=== PATIENT | female | born 1950 | race Caucasian/White ===

== ENCOUNTER 2023-02-13 10:55 | Outpatient (RCR) | payer MEDICARE, OTHER, SELFPAY | END 2023-02-13 23:59 | disposition home or self-care (01) | LOC: RPT 10:55 | PROVIDERS: ATTENDING PHYSICIAN Orthopaedic Surgery; PRIMARYCARE PHYSICIAN Nurse Practitioner Primary Care | DX: M25.562 Pain in left knee (principal); M25.561 Pain in right knee; Z73.6 Limitation of activities due to disability | CPT/HCPCS: 97110; 97112; 97162 ==

== ENCOUNTER 2023-03-09 07:10 | Outpatient (RCR) | payer MEDICARE, OTHER, SELFPAY | END 2023-03-09 08:42 | disposition home or self-care (01) | LOC: RPT 07:10 | PROVIDERS: ATTENDING PHYSICIAN Orthopaedic Surgery; PRIMARYCARE PHYSICIAN Nurse Practitioner Primary Care | DX: M25.562 Pain in left knee (principal); M25.561 Pain in right knee; Z73.6 Limitation of activities due to disability; M62.81 Muscle weakness (generalized) | CPT/HCPCS: 97110; 97112 ==

== ENCOUNTER → 2023-03-18 11:09 | Outpatient (REF) | payer MEDICARE, OTHER, SELFPAY ==
[2023-03-18 11:51] LABS: % Basophils 0.3 % (0-2); % Eosinophils 0.5 % (0-6); % Immature Granulocytes 0.5 % (0-0.5); % Lymphocytes 20.3 % (20.5-51.1); % Monocytes 7.5 % (1.7-9.3); % Neutrophils 70.9 % (42.2-75.2); Absolute Lymphocytes 1.3 10^3/uL (1.2-3.4); Absolute Monocytes 0.5 10^3/uL (0.1-0.6); Absolute Neutrophils 4.6 10^3/uL (1.4-6.5); Hematocrit 43.3 % (37.0-47.0); Hemoglobin 14.2 g/dL (12.0-16.0); Mean Corp Hgb Conc. 32.8 g/dL (33.0-37.0); Mean Corpuscular Hgb 27.7 pg (27.0-31.0); Mean Corpuscular Volume 84.4 fL (81.0-99.0); Mean Platelet Volume 9.2 fL (7.4-10.4); Nucleated Red Blood Cells % 0 %; Platelet Count 285 10^3/uL (130-400); Red Blood Cell Count 5.13 10^6/uL (4.20-5.40); Red Cell Dist. Width 14.1 % (11.5-14.5); White Blood Cell Count 6.5 10^3/uL (4.8-10.8)
[2023-03-18 12:29] LABS: Erythrocyte Sed Rate 31 mm/hour (0-20)
[2023-03-18 13:17] LABS: ALT (SGPT) 24 U/L (0-35); AST (SGOT) 31 U/L (14-36); Albumin 4.3 g/dl (3.5-5.0); Alkaline Phosphatase 126 U/L (38-126); Blood Urea Nitrogen 16 mg/dl (7-17); Calcium 9.6 mg/dl (8.4-10.2); Carbon Dioxide 27 mmol/L (22-30); Chloride 100 mmol/L (98-107); Glucose 82 mg/dl (70-99); Potassium 4.6 mmol/L (3.5-5.1); Sodium 133 mmol/L (135-145); Total Bilirubin 0.6 mg/dl (0.2-1.3); Total Protein 7.5 g/dl (6.3-8.2); eGFR > 60.00
[2023-03-19 00:13] LABS: IgA 230 mg/dl (70-400)
[2023-03-20 00:20] LABS: tTG IgA Antibody <1.02 FLU (0.00-4.99)
[2023-03-20 23:26] LABS: Endomysial IgA Antibody Titer <1:10 (<1:10)
== END ==
LOC: REG 11:09
PROVIDERS: ATTENDING PHYSICIAN Nurse Practitioner Primary Care
DX: R19.7 Diarrhea, unspecified (principal); R10.9 Unspecified abdominal pain; R70.0 Elevated erythrocyte sedimentation rate
CPT/HCPCS: 36415; 80053; 82784; 83516; 85025; 85652; 86140; 86231

== ENCOUNTER → 2023-03-23 08:31 | Outpatient (REF) | payer MEDICARE, OTHER, SELFPAY ==
[2023-03-23 09:17] LABS: % Basophils 0.2 % (0-2); % Eosinophils 0.7 % (0-6); % Immature Granulocytes 0.3 % (0-0.5); % Lymphocytes 17.6 % (20.5-51.1); % Monocytes 9.4 % (1.7-9.3); % Neutrophils 71.8 % (42.2-75.2); Absolute Lymphocytes 1.1 10^3/uL (1.2-3.4); Absolute Monocytes 0.6 10^3/uL (0.1-0.6); Absolute Neutrophils 4.3 10^3/uL (1.4-6.5); Hematocrit 40.6 % (37.0-47.0); Hemoglobin 13.9 g/dL (12.0-16.0); Mean Corp Hgb Conc. 34.2 g/dL (33.0-37.0); Mean Corpuscular Hgb 28.1 pg (27.0-31.0); Mean Platelet Volume 9.6 fL (7.4-10.4); Nucleated Red Blood Cells % 0 %; Platelet Count 298 10^3/uL (130-400); Red Blood Cell Count 4.95 10^6/uL (4.20-5.40); Red Cell Dist. Width 14.4 % (11.5-14.5)
[2023-03-23 09:45] LABS: ALT (SGPT) 26 U/L (0-35); AST (SGOT) 25 U/L (14-36); Albumin 3.7 g/dl (3.5-5.0); Alkaline Phosphatase 107 U/L (38-126); Blood Urea Nitrogen 18 mg/dl (7-17); Calcium 9.6 mg/dl (8.4-10.2); Carbon Dioxide 22 mmol/L (22-30); Glucose 98 mg/dl (70-99); Total Bilirubin 0.6 mg/dl (0.2-1.3); Total Protein 6.8 g/dl (6.3-8.2); eGFR > 60.00
[2023-03-23 09:50] LABS: Chloride 101 mmol/L (98-107); Potassium 4.6 mmol/L (3.5-5.1); Sodium 132 mmol/L (135-145)
[2023-03-23 10:20] LABS: IgA 205 mg/dl (70-400)
[2023-03-24 16:43] LABS: tTG IgA Antibody 6.2 EU/ml (0-19); tTG IgG Antibody 5.3 EU/ml (0-19)
[2023-03-25 22:06] LABS: Endomysial IgA Antibody Titer <1:10 (<1:10)
== END ==
LOC: REG 08:31
PROVIDERS: ATTENDING PHYSICIAN Nurse Practitioner Primary Care
DX: R19.7 Diarrhea, unspecified (principal); R10.9 Unspecified abdominal pain
CPT/HCPCS: 36415; 80053; 82784; 83516; 85025; 86231; 87045; 87046; 87077; 87324; 87328; 87329; 87427; 87449; 89055

== ENCOUNTER → 2023-03-28 08:04 | Outpatient (REF) | payer MEDICARE, OTHER, SELFPAY ==
[2023-03-28 08:47] LABS: % Basophils 0.2 % (0-2); % Immature Granulocytes 0.2 % (0-0.5); % Lymphocytes 28.8 % (20.5-51.1); % Monocytes 9.7 % (1.7-9.3); % Neutrophils 60.1 % (42.2-75.2); Absolute Eosinophils 0.1 10^3/uL (0-0.7); Absolute Lymphocytes 1.5 10^3/uL (1.2-3.4); Absolute Monocytes 0.5 10^3/uL (0.1-0.6); Absolute Neutrophils 3.2 10^3/uL (1.4-6.5); Hematocrit 43.4 % (37.0-47.0); Hemoglobin 14.3 g/dL (12.0-16.0); Mean Corp Hgb Conc. 32.9 g/dL (33.0-37.0); Mean Corpuscular Hgb 27.8 pg (27.0-31.0); Mean Corpuscular Volume 84.3 fL (81.0-99.0); Mean Platelet Volume 9.7 fL (7.4-10.4); Nucleated Red Blood Cells % 0 %; Platelet Count 335 10^3/uL (130-400); Red Blood Cell Count 5.15 10^6/uL (4.20-5.40); Red Cell Dist. Width 14.6 % (11.5-14.5); White Blood Cell Count 5.2 10^3/uL (4.8-10.8)
[2023-03-28 09:09] LABS: ALT (SGPT) 26 U/L (0-35); AST (SGOT) 30 U/L (14-36); Albumin 4.2 g/dl (3.5-5.0); Alkaline Phosphatase 124 U/L (38-126); Blood Urea Nitrogen 15 mg/dl (7-17); Calcium 9.5 mg/dl (8.4-10.2); Carbon Dioxide 27 mmol/L (22-30); Chloride 101 mmol/L (98-107); Glucose 106 mg/dl (70-99); Potassium 4.6 mmol/L (3.5-5.1); Sodium 134 mmol/L (135-145); Total Bilirubin 0.6 mg/dl (0.2-1.3); Total Protein 7.2 g/dl (6.3-8.2); eGFR > 60.00
[2023-03-28 09:10] LABS: Erythrocyte Sed Rate 20 mm/hour (0-20)
== END ==
LOC: REG 08:04
PROVIDERS: ATTENDING PHYSICIAN Nurse Practitioner Primary Care
DX: R19.7 Diarrhea, unspecified (principal)
CPT/HCPCS: 36415; 80053; 85025; 85652; 86140

== ENCOUNTER → 2023-04-02 10:06 | Outpatient (REF) | payer MEDICARE, OTHER, SELFPAY | LOC: RAD 10:06 | PROVIDERS: ATTENDING PHYSICIAN Nurse Practitioner Primary Care | DX: R10.30 Lower abdominal pain, unspecified (principal); K62.89 Other specified diseases of anus and rectum; R19.7 Diarrhea, unspecified; C50.512 Malignant neoplasm of lower-outer quadrant of left female breast; R70.0 Elevated erythrocyte sedimentation rate | CPT/HCPCS: 74177; Q9967 ==

== ENCOUNTER → 2023-04-04 11:18 | Outpatient (REF) | payer MEDICARE, OTHER, SELFPAY | LOC: REG 11:18 | PROVIDERS: ATTENDING PHYSICIAN Nurse Practitioner Primary Care | DX: R19.7 Diarrhea, unspecified (principal) | CPT/HCPCS: 87324; 87449 ==

== ENCOUNTER → 2023-04-20 08:32 | Outpatient (REF) | payer MEDICARE, OTHER, SELFPAY ==
[2023-04-20 09:14] LABS: Urine Albumin Negative (Neg - Trace); Urine Bilirubin Negative (Negative); Urine Character Clear (Clear); Urine Color Yellow; Urine Glucose Negative (Negative); Urine Ketone Negative (Negative); Urine Leukocyte Negative (Negative); Urine Nitrite Negative (Negative); Urine Occult Blood Negative (Negative); Urine Specific Gravity 1.015 (<1.030); Urine Urobilinogen Negative (Neg - 1+); Urine pH 6.5 (5.0-9.0)
[2023-04-20 09:47] LABS: Osmolality Serum 283 mOsm/kg (275-300)
[2023-04-20 09:53] LABS: Blood Urea Nitrogen 20 mg/dl (7-17); Carbon Dioxide 22 mmol/L (22-30); Chloride 101 mmol/L (98-107); Glucose 68 mg/dl (70-99); Osmolality Urine 389 mOsm/kg (300-900); Potassium 4.8 mmol/L (3.5-5.1); Sodium 133 mmol/L (135-145); eGFR > 60.00
[2023-04-20 10:11] LABS: Urine Sodium 48 mmol/L (30-90)
== END ==
LOC: REG 08:32
PROVIDERS: ATTENDING PHYSICIAN Nurse Practitioner Primary Care
DX: E87.1 Hypo-osmolality and hyponatremia (principal)
CPT/HCPCS: 36415; 80048; 81003; 83930; 83935; 84300

== ENCOUNTER 2023-06-19 12:09 | Emergency (ER) | payer MEDICARE, OTHER, SELFPAY ==
[2023-06-19 12:11] VITALS: BP 163/107
[2023-06-19 13:54] LABS: % Basophils 0.2 % (0-2); % Eosinophils 0.9 % (0-6); % Immature Granulocytes 0.2 % (0-0.5); % Neutrophils 57.7 % (42.2-75.2); Absolute Lymphocytes 1.5 10^3/uL (1.2-3.4); Absolute Monocytes 0.4 10^3/uL (0.1-0.6); Absolute Neutrophils 2.7 10^3/uL (1.4-6.5); Hematocrit 40.5 % (37.0-47.0); Hemoglobin 13.6 g/dL (12.0-16.0); Mean Corp Hgb Conc. 33.6 g/dL (33.0-37.0); Mean Corpuscular Hgb 28.5 pg (27.0-31.0); Mean Corpuscular Volume 84.7 fL (81.0-99.0); Mean Platelet Volume 9.3 fL (7.4-10.4); Nucleated Red Blood Cells % 0 %; Platelet Count 251 10^3/uL (130-400); Red Blood Cell Count 4.78 10^6/uL (4.20-5.40); Red Cell Dist. Width 14.6 % (11.5-14.5); White Blood Cell Count 4.7 10^3/uL (4.8-10.8)
[2023-06-19] MEDS: OMNIPAQUE 50 ML PO (13:59)
[2023-06-19 14:00] VITALS: BMI 32.0
[2023-06-19 14:12] LABS: ALT (SGPT) 20 U/L (0-35); AST (SGOT) 26 U/L (14-36); Albumin 4.1 g/dl (3.5-5.0); Blood Urea Nitrogen 18 mg/dl (7-17); Calcium 9.4 mg/dl (8.4-10.2); Carbon Dioxide 28 mmol/L (22-30); Chloride 99 mmol/L (98-107); Estimated Creatinine Clearance 64 ml/min; Glucose 88 mg/dl (70-99); Lipase 215 U/L (23-300); Potassium 3.9 mmol/L (3.5-5.1); Sodium 131 mmol/L (135-145); Total Bilirubin 0.4 mg/dl (0.2-1.3); eGFR > 60.00
[2023-06-19 14:13] LABS: Alkaline Phosphatase 120 U/L (38-126)
[2023-06-19 14:48] LABS: Urine Albumin Negative (Neg - Trace); Urine Bilirubin Negative (Negative); Urine Character Clear (Clear); Urine Color Yellow; Urine Glucose Negative (Negative); Urine Ketone Trace (Negative); Urine Leukocyte Trace (Negative); Urine Nitrite Negative (Negative); Urine Occult Blood Negative (Negative); Urine Specific Gravity 1.015 (<1.030); Urine Urobilinogen Negative (Neg - 1+)
[2023-06-19 15:08] LABS: Urine Amorphous Seen; Urine Squamous Cell 26-30 /LPF (Few)
[2023-06-19 15:10] LABS: Urine Red Blood Cell 0-2 /HPF (0-2)
--- NOTE | 2023-06-19 15:40 | ED.GENMED ---
History of Present Illness
General
Chief Complaint: Abdominal Symptoms
Source: patient
Exam Limitations: none
Time Seen by Provider: 06/19/23 12:45
Nursing documentation reviewed up to this point in time: agreed with
Travel History
Have you had any contact with someone who has COVID-19?: No
Do you have any symptoms of coronavirus? Fever > 100 degrees, chills, cough, shortness of breath, sore throat, loss of taste or smell, muscle aches, or headache?: No
History of Present Illness
History of Present Illness:
72-year-old female with a past medical history of breast cancer status post mastectomy who presents to the emergency department for evaluation of abdominal pain. Patient reports that she has been dealing with this for over a year. Over the past
few months it has been worse. She says that pain comes and goes. Describes crampy lower abdominal pain. She says she has associated issues with irregular bowel movements�will occasionally be quite constipated and then have bouts of diarrhea. She
says that this morning at 3 AM pain seem to be acutely worse. She says pain is diffuse and crampy. No triggering or relieving factors noted. Mild nausea no vomiting. Had some loose stools today. No bloody stools. No fevers. No urinary
symptoms. No other complaints. She has had multiple prior CT scans with no clear diagnosis. She is set to see GI in July (Dr. Barlow).
Review of Systems
Review of Systems
All Other Systems: ROS reviewed and negative except as documented in HPI and ROS
Constitutional: Denies fever or chills
Respiratory: Denies cough or trouble breathing
Cardiac: Denies chest pain or palpitations
ABD/GI: Reports abdominal pain, nausea and diarrhea; Denies vomiting or bloody stools
: Denies dysuria, frequency or flank pain
Musculoskeletal: Denies neck pain or back pain
Neurological: Denies headache, weakness or numbness
Phy Exam
Physical Exam
Physical Exam:
General: Awake, alert, oriented x3; no acute distress
Head: Normocephalic, atraumatic
Eyes: Conjunctiva normal, sclera anicteric
Throat: Airway intact, handling secretions
Neck: Trachea midline, supple without meningismus
Lungs: Clear to auscultation bilaterally, no wheezing, rales, rhonchi
Heart: Regular rate and rhythm, no murmurs, gallops, or rubs
Abd: Normal active bowel sounds, soft, non distended, mild diffuse tenderness
Neuro: No gross deficits
Skin: no rash
Extremities: No edema in extremities, equal pulses in all extremities
Scores
Heart Failure Risk
Heart Failure Risk Score: Not Applicable
Heart Score for Chest Pain Patients
STEMI patient?: Not applicable
Withdrawal Assessment of Alcohol
Withdrawal Assessment Completed?: Not applicable
Course
Orders/Labs/Results
Orders:
Orders
06/19/23 13:29
CT Abd/pel W Iv And Oral Contr Urgent
Comment:
Reason For Exam: diffuse abdominal pain, acute on chronic w/ nausea
Iohexol [Omnipaque] See Protocol PO NOW STA
06/19/23 13:41
Complete Blood Count/With Diff Urgent
Comprehensive Metabolic Panel Urgent
Lipase Urgent
Urinalysis Reflex To Culture Urgent
Date Specimen was Collected: 06/19/23
Time Specimen was Collected: 13:38
Urine Microscopic Reflex Cult Urgent
06/19/23 16:03
Morphine Sulfate 4 mg IV NOW STA
Abnormal Lab Results
06/19/23
13:41
WBC 4.7 L 10^3/uL
(4.8-10.8)
RDW 14.6 H %
(11.5-14.5)
Sodium 131 L mmol/L
(135-145)
BUN 18 H mg/dl
(7-17)
Urine Ketones Trace A
(Negative)
Leukocyte Esterase Rfl Trace A
(Negative)
06/19/23 13:41
06/19/23 13:41
Vital Signs
Initial and Last Documented VS:
Initial Vital Signs
Temp Pulse Resp BP Pulse Ox
36.4 C 77 18 163/107 100
06/19/23 12:11 06/19/23 12:11 06/19/23 12:11 06/19/23 12:11 06/19/23 12:11
Last Documented Vital Signs
Temp Pulse Resp BP Pulse Ox
36.4 C 60 18 178/74 100
06/19/23 12:11 06/19/23 17:02 06/19/23 17:02 06/19/23 17:02 06/19/23 17:02
MDM/Problems Addressed
Differential Diagnosis Includes:
Cholelithiasis, cholecystitis, constipation, irritable bowel syndrome, bowel obstruction, nephrolithiasis, UTI, diverticulitis, appendicitis, malignancy
MDM/Problems Addressed:
72-year-old female presents for evaluation of acute on chronic abdominal pain. Has been dealing with this for months to years and has had associated nausea and alternating diarrhea/constipation. Set to see GI in July. Has had prior imaging with
no clear diagnosis. Symptoms seem acutely worse this morning since 3 AM. She arrived to us hypertensive but otherwise normal vitals. Physical exam as above. Plan to place an IV check labs including a CBC and a CMP. Check urinalysis. Will send
for a CT of the abdomen pelvis. Will treat pain. Monitor closely reassess after the above.
Labs reviewed: CBC unremarkable, CMP no clinically significant abnormalities. Urinalysis negative for infection. CT of the abdomen pelvis shows severe constipation�I suspect that likely her symptoms are due to chronic constipation. I had a long
discussion about dietary adjustments to help with constipation. In the short-term we will start with magnesium citrate and increase MiraLAX over the next few days, add Colace to her current regimen of MiraLAX daily. Patient feels comfortable this
plan. She has follow-up with GI scheduled already. We did speak about return precautions and all questions were answered.
Acute Exacerbation and/or Progression of Chronic Illness:
Acutely hypertensive, likely pain related�treat pain but no additional anti-hypertensives for now
Acute Exacerbation and/or Progression of Chronic Illness: HTN
*Radiology
Radiology exam reviewed: radiology read reviewed
*Pulse Oximetry
Patient hypoxic: no
*Critical Care Note
Total Time (30-74mins, 75-104mins- exclusive of procedures): Not Applicable
Data Reviewed
Review of Other/Old Records Reveals: Labs, Records and Radiology Studies
Source: patient and records
ED Attending Note
-
Portions of this chart may have been created with voice recognition software.� Occasional wrong word or��sound alike� substitutions may have occurred due to the inherent limitations of voice recognition software.
Discharge Plan
Departure
Patient Disposition: Home (Routine Discharge)
Date of Disposition: 06/19/23
Time of Disposition: 17:56
Patient with high blood pressure during this ER visit?: Yes
Discharge Problem:
Acute constipation, Hypertension
Instructions: Constipation, Adult (DC), Martin Diet, BLOOD PRESSURE
Prescriptions:
New
docusate sodium [Colace] 100 mg capsule
100 mg PO DAILY Qty: 30 0RF
Referrals:
January Felix CRNP [Family Provider] -
Ricarda Barlow MD [Active] - Keep scheduled appt
Activity Restrictions/Additional Instructions:
YOU SHOULD TAKE THE MAGNESIUM CITRATE TONIGHT. FOR THE NEXT THREE DAYS, INCREASE YOUR MIRALAX INTAKE TO TWO (2) CAPFULS DAILY. AFTER THAT, YOU CAN RETURN TO ONE (1) CAPFUL DAILY. YOU SHOULD ADD COLACE ONCE DAILY TO YOUR REGIMEN WELL. FOR THE NEXT
THREE DAYS YOU SHOULD KEEP YOUR DIET BLAND WE DISCUSSED. YOU SHOULD FOLLOW UP WITH THE GI DOCTOR SCHEDULED.
Thank you for visiting the Emergency Department at [facility].
1. Please schedule a follow up appointment as directed. Call first thing tomorrow morning to make an appointment.
2. If indicated, please take your medications as instructed and indicated on discharge paperwork.
3. If any of your symptoms do not improve, or persist, or become more severe within 6-12 hours, please return to the emergency department for further care.
4. Please return to the emergency department if you develop a headache, neck pain/stiffness, fever greater than 100.4F, chest pain, shortness of breath, persistent nausea, vomiting, slurred speech, difficulty walking, numbness/tingling, weakness,
signs of infection or any other symptoms that are worrisome to you.
Please call [phone] if you have any questions.
Interventions
Interventions:
*Risk Screen - Suicide Last Done: 06/19/23 14:00
*General Assessment Last Done: 06/19/23 14:00
*Neglect/Abuse Screening Last Done: 06/19/23 14:00
YK-Wyngrd-Thnsjvhlnq Assessment Last Done: 06/19/23 14:00
Discharge Date and Time
Print Language: WELSH
[2023-06-19 17:02] VITALS: BP 178/74
[2023-06-19] MEDS: CITROMA 300 ML PO (18:11)
== END 2023-06-19 18:39 | disposition home or self-care (01) ==
LOC: EMR 12:09
PROVIDERS: EMERGENCY PHYSICIAN Emergency Medicine; FAMILY PHYSICIAN Nurse Practitioner Primary Care
DX: K59.09 Other constipation (principal); I10 Essential (primary) hypertension
CPT/HCPCS: 99285; 74177; 80053; 81003; 81015; 83690; 85025; Q9967

== ENCOUNTER 2023-06-23 14:13 | Emergency (ER) | payer MEDICARE, OTHER, SELFPAY ==
[2023-06-23 14:24] VITALS: BP 162/89
--- NOTE | 2023-06-23 15:22 | ED.GENMED ---
History of Present Illness
General
Chief Complaint: Abdominal Pain
Source: patient
Exam Limitations: none
Time Seen by Provider: 06/23/23 15:06
Nursing documentation reviewed up to this point in time: agreed with
Travel History
Have you had any contact with someone who has COVID-19?: No
Do you have any symptoms of coronavirus? Fever > 100 degrees, chills, cough, shortness of breath, sore throat, loss of taste or smell, muscle aches, or headache?: No
History of Present Illness
History of Present Illness:
72 y/o F with h/o remote breast cancer
dealing with some chronic constipation for months
here with diarrhea, lower abd pain
was here 4 day ago for lower abd pain and CT showed large stool burden c/w constipation, no colitis
pt was d/c with instructions to use mag citrate 1 bottle that day and then inc her daily miralax to BID which she has done the apst 3 ays
now she has worsening lower abd pain and has had very voluminous loose bms x 4 yesterday ,x 2 today, no blood.
pt feels dehydrated and weak
no fever, chills, urinary symptoms, syncope, cp.
turns out this lower abd pain and rectal ';pressure' has been ongoni since april
she also had it last year
has been to PCP and ED and is due to see GI next month
no diagnosis
it is slightly worse than usual but ithis is the same pain she has felt for months
Past History
Past History
ED Past Medical History: Cancer (breast)
ED Past Surgical History: Other (mastectomy)
Review of Systems
Review of Systems
Allergies reviewed?: Yes
All Other Systems: Not applicable
Phy Exam
Physical Exam
Physical Exam:
GENERAL: Alert , in no apparent distress
EYE: pupils equal and reactive
NECK: Supple
ENT: o/p clr, mmm.
CARDIAC: Regular rate and rhythm .
LUNGS: Clear breath sounds bilaterally, no acute respiratory distress, no wheezes/rales/rhonchi
ABDOMEN: Soft, no focal abdominal tenderness, nondistended no r/g, no cvat, normal bowel sounds
rectal: no fecal impaction, stool heme neg
NEUROLOGICAL: Alert and oriented, no focal neuro deficits
SKIN: Warm and dry, skin intact.
MUSCULOSKELETAL: No edema, well perfused.
PSYCH: Normal and appropriate interaction.
Course
Orders/Labs/Results
Orders:
Orders
06/23/23 15:19
0.9% Sodium Chloride 1000 ml [Nss] 1,000 ml IV BOLUS
Dicyclomine [Bentyl] 20 mg PO NOW STA
Ketorolac [Toradol] 15 mg IV NOW STA
06/23/23 15:44
Complete Blood Count/With Diff Urgent
Comprehensive Metabolic Panel Urgent
Lactic Acid Urgent
Magnesium Urgent
Urinalysis Reflex To Culture Urgent
Date Specimen was Collected: 06/23/23
Time Specimen was Collected: 15:24
06/23/23 17:04
Obstruct Series W/PA Chest [CR Obstruct Series W/pa Chest] Urgent
Comment:
Reason For Exam: chronic abd pain, constipation
06/23/23 17:39
Mineral Oil Enema [Fleet Mineral Oil Enema] 133 ml RECTAL NOW STA
Abnormal Lab Results
06/23/23
15:44
Sodium 131 L mmol/L
(135-145)
Chloride 97 L mmol/L
(98-107)
BUN 21 H mg/dl
(7-17)
06/23/23 15:44
06/23/23 15:44
Vital Signs
Blood pressure: 167/65
Initial and Last Documented VS:
Initial Vital Signs
Temp Pulse Resp BP Pulse Ox
98.1 F 88 20 162/89 99
06/23/23 14:24 06/23/23 14:24 06/23/23 14:24 06/23/23 14:24 06/23/23 14:24
Last Documented Vital Signs
Temp Pulse Resp BP Pulse Ox
98.1 F 51 20 167/65 99
06/23/23 14:24 06/23/23 17:32 06/23/23 14:24 06/23/23 17:41 06/23/23 14:24
MDM/Problems Addressed
Differential Diagnosis Includes:
chronic constipation, ibs, colitis, diarrhea
MDM/Problems Addressed:
72-year-old female with a remote breast cancer, otherwise healthy but dealing with chronic abdominal issues presents for second time in a few days for now looser bowel movements and lower abdominal pain after being seen here few days ago and having
a CT showing constipation for which she was treated with mag citrate, MiraLAX twice daily and Colace. Patient normally just takes MiraLAX once a day. Since using all those meds she has had more crampy abdominal pain and more looser stools. She
has had larger volume, yesterday was worse with 4 episodes and today was just 2 episodes but she feels a little dehydrated. She is not having any fever or chills or vomiting. Stool is brown. She has not had any known infectious exposures. On
exam her vitals are stable, she seems anxious but she has no focal abdominal tenderness, no fecal impaction. Initially it seemed as if these symptoms all started after the meds the other day but after the patient was treated with pain medication
she feels much better and was able to tell me that she has had the same symptoms for months. She seen her family doctor and come to the ER few times and also has an appointment with GI coming up. On exam I am not concerned about an infectious
cause, she has no diverticula noted in the colon. Her labs are reassuring showed no elevated white count lfts, normal no sig electrolyte disturbances
Patient reassessed after Bentyl and Toradol and she still having some of the lower abdominal pain although it is improved. I will repeat an obstruction series to look at the bowel gas pattern but anticipate discharge with Bentyl, Metamucil and
Tylenol for pain. Follow-up with GI
*Critical Care Note
Total Time (30-74mins, 75-104mins- exclusive of procedures): Not Applicable
ED Attending Note
-
Portions of this chart may have been created with voice recognition software.� Occasional wrong word or��sound alike� substitutions may have occurred due to the inherent limitations of voice recognition software.
Discharge Plan
Departure
Patient Disposition: Home (Routine Discharge)
Date of Disposition: 06/23/23
Time of Disposition: 17:39
Patient with high blood pressure during this ER visit?: Yes
Condition: Fair
Covid-19: Not Applicable
Discharge Problem:
Abdominal pain, Constipation
Instructions: Constipation, Adult (DC), Abdominal Pain
Prescriptions:
New
dicyclomine 20 mg tablet
20 mg PO TID PRN (Reason: abdominal pain) 5 Days Qty: 15 0RF
No Action
docusate sodium [Colace] 100 mg capsule
100 mg PO DAILY Qty: 30 0RF
Referrals:
January Felix CRNP [Family Provider] - Follow up in 2-3 days
Activity Restrictions/Additional Instructions:
You still have a fair amount of stool in your colon despite the fact that you have had success moving her bowels after the magnesium citrate. You can go back to taking the MiraLAX only once a day. I think twice a day with may be too much for you.
You can continue taking Colace or use Metamucil daily to help prevent constipation. You should follow-up with GI. Call for your appointment to see if they can move it up into June. Follow-up with your doctor in the meantime. Your blood work was
reassuring and I do not feel like you have an acute infection but that should you get fever or chills, worsening pain, bloody diarrhea, vomiting you should come back and get reassessed.
FOR PAIN YOU CAN USE BENTYL 20 MG 1 TAB EVERY 8 HOURS NEEDED
USE THE FLEET ENEMA WHEN YOU GET HOME
YOU CAN USE ANOTHER ONE IN 3 DAYS IF YOU NEED
Interventions
Interventions:
*Risk Screen - Suicide Last Done: 06/23/23 14:24
*General Assessment Last Done: 06/23/23 14:24
*Neglect/Abuse Screening Last Done: 06/23/23 14:24
ED- Fall Risk Assessment Last Done: 06/23/23 15:49
*Nursing Disposition Last Done: 06/23/23 18:13
GZ-Rxnlfc-Avhzwygqad Assessment Last Done: 06/23/23 15:49
Discharge Date and Time
Discharge Date/Time: 06/23/23 18:14
Print Language: IRISH
[2023-06-23] MEDS: TORADOL 15 MG IV (15:43)
[2023-06-23] MEDS: NSS 1000 IV (15:43)
[2023-06-23] MEDS: BENTYL 20 MG PO (15:43)
[2023-06-23 15:49] VITALS: BMI 32.5
[2023-06-23 15:55] LABS: % Basophils 0.3 % (0-2); % Eosinophils 0.3 % (0-6); % Immature Granulocytes 0.3 % (0-0.5); % Lymphocytes 24.4 % (20.5-51.1); % Monocytes 8.1 % (1.7-9.3); % Neutrophils 66.6 % (42.2-75.2); Absolute Lymphocytes 1.6 10^3/uL (1.2-3.4); Absolute Monocytes 0.5 10^3/uL (0.1-0.6); Absolute Neutrophils 4.4 10^3/uL (1.4-6.5); Hematocrit 43.7 % (37.0-47.0); Hemoglobin 14.4 g/dL (12.0-16.0); Mean Corpuscular Hgb 28.5 pg (27.0-31.0); Mean Corpuscular Volume 86.4 fL (81.0-99.0); Mean Platelet Volume 9.6 fL (7.4-10.4); Nucleated Red Blood Cells % 0 %; Platelet Count 261 10^3/uL (130-400); Red Blood Cell Count 5.06 10^6/uL (4.20-5.40); Red Cell Dist. Width 14.3 % (11.5-14.5); Urine Albumin Negative (Neg - Trace); Urine Bilirubin Negative (Negative); Urine Character Clear (Clear); Urine Color Yellow; Urine Glucose Negative (Negative); Urine Ketone Negative (Negative); Urine Leukocyte Negative (Negative); Urine Nitrite Negative (Negative); Urine Occult Blood Negative (Negative); Urine Urobilinogen Negative (Neg - 1+); White Blood Cell Count 6.7 10^3/uL (4.8-10.8)
[2023-06-23 16:06] LABS: Lactic Acid 1.2 mmol/L (0.7-2.0)
[2023-06-23 16:19] LABS: ALT (SGPT) 18 U/L (0-35); AST (SGOT) 27 U/L (14-36); Albumin 4.4 g/dl (3.5-5.0); Alkaline Phosphatase 125 U/L (38-126); Blood Urea Nitrogen 21 mg/dl (7-17); Calcium 9.9 mg/dl (8.4-10.2); Carbon Dioxide 25 mmol/L (22-30); Chloride 97 mmol/L (98-107); Estimated Creatinine Clearance 64 ml/min; Glucose 80 mg/dl (70-99); Potassium 4.1 mmol/L (3.5-5.1); Sodium 131 mmol/L (135-145); Total Bilirubin 0.5 mg/dl (0.2-1.3); Total Protein 7.4 g/dl (6.3-8.2); eGFR > 60.00
[2023-06-23 17:32] VITALS: BP 172/74
[2023-06-23] MEDS: FLEET MINERAL OIL ENEMA 133 ML RECTAL (17:56)
== END 2023-06-23 18:14 | disposition home or self-care (01) ==
LOC: EMR 14:13
PROVIDERS: Physician Assistant; EMERGENCY PHYSICIAN Emergency Medicine; FAMILY PHYSICIAN Nurse Practitioner Primary Care
DX: K59.00 Constipation, unspecified (principal); K44.9 Diaphragmatic hernia without obstruction or gangrene; R03.0 Elevated blood-pressure reading, without diagnosis of hypertension
CPT/HCPCS: 99284; 96374; 74022; 80053; 81003; 83605; 83735; 85025

== ENCOUNTER → 2023-06-30 09:52 | Outpatient (REF) | payer MEDICARE, OTHER, SELFPAY ==
[2023-06-30 11:45] LABS: % Basophils 0.3 % (0-2); % Eosinophils 0.6 % (0-6); % Immature Granulocytes 0.3 % (0-0.5); % Lymphocytes 20.6 % (20.5-51.1); % Monocytes 7.9 % (1.7-9.3); % Neutrophils 70.3 % (42.2-75.2); Absolute Lymphocytes 1.4 10^3/uL (1.2-3.4); Absolute Monocytes 0.5 10^3/uL (0.1-0.6); Absolute Neutrophils 4.7 10^3/uL (1.4-6.5); Hemoglobin 14.8 g/dL (12.0-16.0); Mean Corp Hgb Conc. 32.2 g/dL (33.0-37.0); Mean Corpuscular Hgb 28.4 pg (27.0-31.0); Mean Corpuscular Volume 88.3 fL (81.0-99.0); Mean Platelet Volume 10.8 fL (7.4-10.4); Nucleated Red Blood Cells % 0 %; Platelet Count 291 10^3/uL (130-400); Red Blood Cell Count 5.21 10^6/uL (4.20-5.40); Red Cell Dist. Width 14.4 % (11.5-14.5); White Blood Cell Count 6.7 10^3/uL (4.8-10.8)
[2023-06-30 12:19] LABS: Blood Urea Nitrogen 22 mg/dl (7-17); Calcium 10.6 mg/dl (8.4-10.2); Carbon Dioxide 25 mmol/L (22-30); Chloride 97 mmol/L (98-107); Glucose 79 mg/dl (70-99); Magnesium 2.3 mg/dl (1.6-2.3); Potassium 5.8 mmol/L (3.5-5.1); Sodium 133 mmol/L (135-145); eGFR > 60.00
[2023-06-30 12:50] LABS: TSH Reflex To Free T4 0.52 uIU/ml (0.47-4.68)
[2023-06-30 13:11] LABS: Erythrocyte Sed Rate 19 mm/hour (0-20)
== END ==
LOC: REG 09:52
PROVIDERS: ATTENDING PHYSICIAN Nurse Practitioner Primary Care
DX: K59.00 Constipation, unspecified (principal); R63.4 Abnormal weight loss; E87.1 Hypo-osmolality and hyponatremia
CPT/HCPCS: 36415; 80048; 83735; 84443; 85025; 85652; 86140

== ENCOUNTER → 2023-07-02 13:12 | Outpatient (REF) | payer MEDICARE, OTHER, SELFPAY ==
[2023-07-02 13:51] LABS: Ionized Calcium 1.22 mMOL/L (1.15-1.33)
[2023-07-02 14:52] LABS: Blood Urea Nitrogen 20 mg/dl (7-17); Calcium 10.2 mg/dl (8.4-10.2); Carbon Dioxide 31 mmol/L (22-30); Chloride 93 mmol/L (98-107); Glucose 94 mg/dl (70-99); Potassium 4.9 mmol/L (3.5-5.1); Sodium 132 mmol/L (135-145); eGFR > 60.00
== END ==
LOC: REG 13:12
PROVIDERS: ATTENDING PHYSICIAN Nurse Practitioner Primary Care
DX: E87.5 Hyperkalemia (principal)
CPT/HCPCS: 36415; 80048; 82330

== ENCOUNTER → 2023-07-22 06:26 | Day surgery (SDC) | payer MEDICARE, OTHER, SELFPAY | LOC: GI 06:26 | PROVIDERS: ATTENDING PHYSICIAN Internal Medicine Gastroenterology | DX: R19.4 Change in bowel habit (principal); K57.30 Diverticulosis of large intestine without perforation or abscess without bleeding; K55.20 Angiodysplasia of colon without hemorrhage; K64.8 Other hemorrhoids; R12 Heartburn; K44.9 Diaphragmatic hernia without obstruction or gangrene; K31.7 Polyp of stomach and duodenum; K25.9 Gastric ulcer, unspecified as acute or chronic, without hemorrhage or perforation; D12.5 Benign neoplasm of sigmoid colon; K29.50 Unspecified chronic gastritis without bleeding | CPT/HCPCS: 45385; 43239; 88305; 88342 ==

== ENCOUNTER → 2023-07-29 08:31 | Outpatient (REF) | payer MEDICARE, OTHER, SELFPAY | LOC: MRI 3T 08:31 | PROVIDERS: ATTENDING PHYSICIAN Internal Medicine Gastroenterology; FAMILY PHYSICIAN Nurse Practitioner Primary Care | DX: K86.2 Cyst of pancreas (principal) | CPT/HCPCS: 74183; A9575 ==

== ENCOUNTER → 2023-08-13 15:32 | Outpatient (REF) | payer MEDICARE, OTHER, SELFPAY ==
[2023-08-13 16:48] LABS: % Basophils 0.3 % (0-2); % Eosinophils 1.2 % (0-6); % Immature Granulocytes 0.1 % (0-0.5); % Lymphocytes 22.3 % (20.5-51.1); % Monocytes 10.7 % (1.7-9.3); % Neutrophils 65.4 % (42.2-75.2); Absolute Eosinophils 0.1 10^3/uL (0-0.7); Absolute Lymphocytes 1.5 10^3/uL (1.2-3.4); Absolute Monocytes 0.7 10^3/uL (0.1-0.6); Absolute Neutrophils 4.4 10^3/uL (1.4-6.5); Hematocrit 40.7 % (37.0-47.0); Hemoglobin 13.8 g/dL (12.0-16.0); Mean Corp Hgb Conc. 33.9 g/dL (33.0-37.0); Mean Corpuscular Hgb 28.5 pg (27.0-31.0); Mean Corpuscular Volume 84.1 fL (81.0-99.0); Mean Platelet Volume 9.9 fL (7.4-10.4); Nucleated Red Blood Cells % 0 %; Platelet Count 303 10^3/uL (130-400); Red Blood Cell Count 4.84 10^6/uL (4.20-5.40); Red Cell Dist. Width 13.5 % (11.5-14.5); White Blood Cell Count 6.7 10^3/uL (4.8-10.8)
[2023-08-13 17:04] LABS: ALT (SGPT) 17 U/L (0-35); AST (SGOT) 24 U/L (14-36); Albumin 4.3 g/dl (3.5-5.0); Alkaline Phosphatase 123 U/L (38-126); Blood Urea Nitrogen 17 mg/dl (7-17); Calcium 9.6 mg/dl (8.4-10.2); Carbon Dioxide 26 mmol/L (22-30); Chloride 96 mmol/L (98-107); Glucose 75 mg/dl (70-99); Iron 55 ug/dl (37-170); Magnesium 2.2 mg/dl (1.6-2.3); Potassium 4.5 mmol/L (3.5-5.1); Sodium 131 mmol/L (135-145); Total Bilirubin 0.3 mg/dl (0.2-1.3); Total Protein 7.2 g/dl (6.3-8.2); eGFR > 60.00
[2023-08-13 17:14] LABS: Percent Saturation 17 % (20-50); Total Iron Binding Capacity 319 ug/dl (265-497)
[2023-08-13 17:20] LABS: Free T4 1.13 ng/dl (0.78-2.19)
[2023-08-13 17:34] LABS: TSH 3.22 uIU/ml (0.47-4.68)
[2023-08-13 17:38] LABS: Ferritin 39.9 ng/ml (11.1-264.0)
== END ==
LOC: REG 15:32
PROVIDERS: ATTENDING PHYSICIAN Nurse Practitioner Primary Care
DX: E87.1 Hypo-osmolality and hyponatremia (principal); K21.9 Gastro-esophageal reflux disease without esophagitis; E21.3 Hyperparathyroidism, unspecified; E61.1 Iron deficiency
CPT/HCPCS: 36415; 80053; 82728; 83540; 83550; 83735; 84439; 84443; 85025

== ENCOUNTER → 2023-10-01 08:07 | Outpatient (REF) | payer MEDICARE, OTHER, SELFPAY ==
[2023-10-01 10:40] LABS: Blood Urea Nitrogen 18 mg/dl (7-17); Calcium 9.3 mg/dl (8.4-10.2); Carbon Dioxide 23 mmol/L (22-30); Chloride 95 mmol/L (98-107); Glucose 140 mg/dl (70-99); Potassium 4.6 mmol/L (3.5-5.1); Sodium 128 mmol/L (135-145); eGFR > 60.00
== END ==
LOC: REG 08:07
PROVIDERS: ATTENDING PHYSICIAN Nurse Practitioner Primary Care
DX: E87.1 Hypo-osmolality and hyponatremia (principal); Z79.899 Other long term (current) drug therapy
CPT/HCPCS: 36415; 80048

== ENCOUNTER → 2023-10-08 10:54 | Outpatient (REF) | payer MEDICARE, OTHER, SELFPAY | LOC: RAD 10:54 | PROVIDERS: ATTENDING PHYSICIAN Nurse Practitioner Primary Care | DX: K59.09 Other constipation (principal); R14.0 Abdominal distension (gaseous) | CPT/HCPCS: 76830; 76856 ==

== ENCOUNTER → 2023-10-16 06:31 | Outpatient (REF) | payer MEDICARE, OTHER, SELFPAY ==
[2023-10-16 07:29] LABS: % Basophils 0.6 % (0-2); % Eosinophils 1.7 % (0-6); % Lymphocytes 24.1 % (20.5-51.1); % Monocytes 9.5 % (1.7-9.3); % Neutrophils 64.1 % (42.2-75.2); Absolute Eosinophils 0.1 10^3/uL (0-0.7); Absolute Lymphocytes 1.1 10^3/uL (1.2-3.4); Absolute Monocytes 0.5 10^3/uL (0.1-0.6); Hematocrit 42.2 % (37.0-47.0); Hemoglobin 14.4 g/dL (12.0-16.0); Mean Corp Hgb Conc. 34.1 g/dL (33.0-37.0); Mean Corpuscular Volume 85.1 fL (81.0-99.0); Mean Platelet Volume 9.4 fL (7.4-10.4); Nucleated Red Blood Cells % 0 %; Platelet Count 345 10^3/uL (130-400); Red Blood Cell Count 4.96 10^6/uL (4.20-5.40); Red Cell Dist. Width 13.8 % (11.5-14.5); White Blood Cell Count 4.7 10^3/uL (4.8-10.8)
[2023-10-16 07:47] LABS: Erythrocyte Sed Rate 18 mm/hour (0-20)
[2023-10-16 07:58] LABS: ALT (SGPT) 17 U/L (0-35); AST (SGOT) 24 U/L (14-36); Albumin 4.2 g/dl (3.5-5.0); Alkaline Phosphatase 128 U/L (38-126); Blood Urea Nitrogen 15 mg/dl (7-17); Calcium 9.9 mg/dl (8.4-10.2); Carbon Dioxide 32 mmol/L (22-30); Chloride 96 mmol/L (98-107); Glucose 82 mg/dl (70-99); Potassium 5.3 mmol/L (3.5-5.1); Sodium 136 mmol/L (135-145); Total Bilirubin 0.6 mg/dl (0.2-1.3); eGFR > 60.00
[2023-10-16 08:28] LABS: Cortisol, Random 18.6 ug/dl; TSH Reflex To Free T4 3.35 uIU/ml (0.47-4.68)
[2023-10-18 15:57] LABS: Chromogranin A 125 ng/mL (0-187)
== END ==
LOC: REG 06:31
PROVIDERS: ATTENDING PHYSICIAN Nurse Practitioner Primary Care; REFERRING PHYSICIAN Nurse Practitioner Family
DX: R23.2 Flushing (principal); R63.4 Abnormal weight loss
CPT/HCPCS: 36415; 80053; 82384; 82533; 83835; 84443; 85025; 85652; 86140; 86316

== ENCOUNTER → 2023-11-10 06:22 | Outpatient (REF) | payer MEDICARE, OTHER, SELFPAY ==
[2023-11-10 07:57] LABS: ALT (SGPT) 20 U/L (0-35); AST (SGOT) 27 U/L (14-36); Albumin 4.4 g/dl (3.5-5.0); Alkaline Phosphatase 114 U/L (38-126); Blood Urea Nitrogen 17 mg/dl (7-17); Calcium 9.7 mg/dl (8.4-10.2); Carbon Dioxide 26 mmol/L (22-30); Chloride 94 mmol/L (98-107); Glucose 74 mg/dl (70-99); Potassium 4.8 mmol/L (3.5-5.1); Sodium 133 mmol/L (135-145); Total Bilirubin 0.6 mg/dl (0.2-1.3); Total Protein 7.2 g/dl (6.3-8.2); eGFR > 60.00
== END ==
LOC: RAD 06:22
PROVIDERS: ATTENDING PHYSICIAN Nurse Practitioner Primary Care
DX: C50.512 Malignant neoplasm of lower-outer quadrant of left female breast (principal); R63.4 Abnormal weight loss; E87.5 Hyperkalemia
CPT/HCPCS: 36415; 71260; 80053; Q9967

== ENCOUNTER → 2024-02-18 07:12 | Outpatient (REF) | payer MEDICARE, OTHER, SELFPAY ==
[2024-02-18 08:40] LABS: % Basophils 0.6 % (0-2); % Immature Granulocytes 0.2 % (0-0.5); % Lymphocytes 17.8 % (20.5-51.1); % Monocytes 9.3 % (1.7-9.3); % Neutrophils 71.1 % (42.2-75.2); Absolute Eosinophils 0.1 10^3/uL (0-0.7); Absolute Lymphocytes 0.9 10^3/uL (1.2-3.4); Absolute Monocytes 0.5 10^3/uL (0.1-0.6); Absolute Neutrophils 3.5 10^3/uL (1.4-6.5); Hematocrit 42.2 % (37.0-47.0); Hemoglobin 13.7 g/dL (12.0-16.0); Mean Corp Hgb Conc. 32.5 g/dL (33.0-37.0); Mean Corpuscular Hgb 28.8 pg (27.0-31.0); Mean Corpuscular Volume 88.7 fL (81.0-99.0); Mean Platelet Volume 9.9 fL (7.4-10.4); Nucleated Red Blood Cells % 0 %; Platelet Count 310 10^3/uL (130-400); Red Blood Cell Count 4.76 10^6/uL (4.20-5.40); Red Cell Dist. Width 13.3 % (11.5-14.5)
[2024-02-18 09:21] LABS: Vitamin D, 25-OH*** 49.1 ng/mL (30-80)
[2024-02-18 09:23] LABS: ALT (SGPT) 21 U/L (0-35); AST (SGOT) 27 U/L (14-36); Alkaline Phosphatase 116 U/L (38-126); Blood Urea Nitrogen 22 mg/dl (7-17); Calcium 9.2 mg/dl (8.4-10.2); Carbon Dioxide 28 mmol/L (22-30); Chloride 97 mmol/L (98-107); Glucose 80 mg/dl (70-99); HDL Cholesterol 94 mg/dl; LDL Cholesterol, Calculated 66 mg/dl; Potassium 4.7 mmol/L (3.5-5.1); Sodium 132 mmol/L (135-145); Total Bilirubin 0.5 mg/dl (0.2-1.3); Total Cholesterol 174 mg/dl (50-199); Total Protein 6.7 g/dl (6.3-8.2); Triglyceride 70 mg/dl (10-149); Very Low Density Lipoprotein 14 mg/dl (0-30); eGFR > 60.00
== END ==
LOC: RAD 07:12
PROVIDERS: ATTENDING PHYSICIAN Nurse Practitioner Primary Care
DX: M85.89 Other specified disorders of bone density and structure, multiple sites (principal); E78.2 Mixed hyperlipidemia; R41.3 Other amnesia; M81.0 Age-related osteoporosis without current pathological fracture
CPT/HCPCS: 36415; 77080; 80053; 80061; 82306; 85025

== ENCOUNTER → 2024-03-25 11:01 | Outpatient (REF) | payer MEDICARE, OTHER, SELFPAY ==
[2024-03-25 12:12] LABS: Blood Urea Nitrogen 27 mg/dl (7-17)
== END ==
LOC: REG 11:01
PROVIDERS: ATTENDING PHYSICIAN Nurse Practitioner Primary Care
DX: R79.9 Abnormal finding of blood chemistry, unspecified (principal)
CPT/HCPCS: 36415; 82565; 84520

== ENCOUNTER → 2024-04-21 06:41 | Outpatient (REF) | payer MEDICARE, OTHER, SELFPAY | LOC: RAD 06:41 | PROVIDERS: ATTENDING PHYSICIAN Nurse Practitioner Primary Care | DX: C50.512 Malignant neoplasm of lower-outer quadrant of left female breast (principal); R91.1 Solitary pulmonary nodule | CPT/HCPCS: 71260; Q9967 ==

== ENCOUNTER → 2024-09-01 10:16 | Outpatient (REF) | payer MEDICARE, OTHER, SELFPAY ==
[2024-09-01 12:22] LABS: Hematocrit 43.6 % (37.0-47.0); Hemoglobin 14.8 g/dL (12.0-16.0); Mean Corp Hgb Conc. 33.9 g/dL (33.0-37.0); Mean Corpuscular Volume 89.9 fL (81.0-99.0); Nucleated Red Blood Cells % 0 %; Platelet Count 299 10^3/uL (130-400); Red Cell Dist. Width 13.6 % (11.5-14.5)
[2024-09-01 13:29] LABS: ALT (SGPT) 19 U/L (0-35); AST (SGOT) 25 U/L (14-36); Albumin 4.5 g/dl (3.5-5.0); Alkaline Phosphatase 123 U/L (38-126); Amylase 110 U/L (30-110); Blood Urea Nitrogen 27 mg/dl (7-17); Calcium 9.9 mg/dl (8.4-10.2); Carbon Dioxide 29 mmol/L (22-30); Chloride 96 mmol/L (98-107); Glucose 86 mg/dl (70-99); Iron 87 ug/dl (37-170); Lipase 219 U/L (23-300); Potassium 4.9 mmol/L (3.5-5.1); Sodium 128 mmol/L (135-145); Total Protein 7.4 g/dl (6.3-8.2); eGFR > 60.00
[2024-09-01 13:38] LABS: Total Iron Binding Capacity 333 ug/dl (265-497)
[2024-09-01 14:07] LABS: Ferritin 33.5 ng/ml (11.1-264.0)
[2024-09-01 14:22] LABS: Vitamin B12 790 pg/ml (239-931)
== END ==
LOC: REG 10:16
PROVIDERS: ATTENDING PHYSICIAN Nurse Practitioner Primary Care
DX: K63.8219 Small intestinal bacterial overgrowth, unspecified (principal); R63.4 Abnormal weight loss; E87.1 Hypo-osmolality and hyponatremia; E21.3 Hyperparathyroidism, unspecified; G62.9 Polyneuropathy, unspecified; R53.83 Other fatigue; D50.9 Iron deficiency anemia, unspecified; D51.9 Vitamin B12 deficiency anemia, unspecified
CPT/HCPCS: 36415; 80053; 82150; 82550; 82607; 82728; 83540; 83550; 83690; 84443; 85025; 86618

== ENCOUNTER → 2024-11-01 10:10 | Outpatient (REF) | payer MEDICARE, OTHER, SELFPAY ==
[2024-11-01 11:27] LABS: Urine Character Slightly Cloudy (Clear)
[2024-11-01 12:27] LABS: Urine Red Blood Cell None Seen /HPF (0-2)
== END ==
LOC: REG 10:10
PROVIDERS: ATTENDING PHYSICIAN Specialist; FAMILY PHYSICIAN Nurse Practitioner Primary Care; OTHER PHYSICIAN Nurse Practitioner Family
DX: E87.1 Hypo-osmolality and hyponatremia (principal)
CPT/HCPCS: 36415; 81003; 81015; 83935; 84155; 84165

== ENCOUNTER → 2024-11-03 10:45 | Outpatient (REF) | payer MEDICARE, OTHER, SELFPAY ==
[2024-11-03 12:03] LABS: Uric Acid 4.1 mg/dl (2.5-6.2)
[2024-11-03 12:40] LABS: Cortisol, Random 9.5 ug/dl
== END ==
LOC: REG 10:45
PROVIDERS: ATTENDING PHYSICIAN Specialist; FAMILY PHYSICIAN Nurse Practitioner Primary Care
DX: E21.3 Hyperparathyroidism, unspecified (principal); E06.3 Autoimmune thyroiditis; R35.0 Frequency of micturition; E78.2 Mixed hyperlipidemia; E87.1 Hypo-osmolality and hyponatremia; E61.1 Iron deficiency; R70.0 Elevated erythrocyte sedimentation rate; D64.9 Anemia, unspecified; R74.8 Abnormal levels of other serum enzymes; E34.9 Endocrine disorder, unspecified
CPT/HCPCS: 36415; 82533; 83930; 84443; 84550

== ENCOUNTER → 2024-11-15 08:45 | Outpatient (REF) | payer MEDICARE, OTHER, SELFPAY ==
[2024-11-15 09:42] LABS: Hematocrit 45.7 % (37.0-47.0); Hemoglobin 15.3 g/dL (12.0-16.0); Mean Corp Hgb Conc. 33.5 g/dL (33.0-37.0); Mean Corpuscular Volume 90.7 fL (81.0-99.0); Nucleated Red Blood Cells % 0 %; Platelet Count 309 10^3/uL (130-400); Red Cell Dist. Width 13.4 % (11.5-14.5)
[2024-11-15 10:01] LABS: Calcium 9.9 mg/dl (8.4-10.2); Carbon Dioxide 29 mmol/L (22-30); Chloride 96 mmol/L (98-107); Glucose 94 mg/dl (70-99); LDH 178 U/L (120-246); Potassium 5.7 mmol/L (3.5-5.1); Sodium 132 mmol/L (135-145); eGFR 58.75
[2024-11-15 10:11] LABS: Blood Urea Nitrogen 30 mg/dl (7-17)
== END ==
LOC: REG 08:45
PROVIDERS: ATTENDING PHYSICIAN Specialist; FAMILY PHYSICIAN Nurse Practitioner Primary Care
DX: R63.4 Abnormal weight loss (principal); E21.3 Hyperparathyroidism, unspecified; E87.1 Hypo-osmolality and hyponatremia; E78.2 Mixed hyperlipidemia
CPT/HCPCS: 36415; 80048; 83615; 83970; 85025

== ENCOUNTER → 2024-11-24 13:36 | Outpatient (REF) | payer MEDICARE, OTHER, SELFPAY ==
[2024-11-24 14:52] LABS: Blood Urea Nitrogen 34 mg/dl (7-17); Calcium 9.5 mg/dl (8.4-10.2); Carbon Dioxide 27 mmol/L (22-30); Chloride 97 mmol/L (98-107); Glucose 88 mg/dl (70-99); Potassium 5.0 mmol/L (3.5-5.1); Sodium 129 mmol/L (135-145); eGFR > 60.00
== END ==
LOC: RAD 13:36
PROVIDERS: ATTENDING PHYSICIAN Nurse Practitioner Primary Care; OTHER PHYSICIAN Specialist
DX: E04.1 Nontoxic single thyroid nodule (principal); E06.3 Autoimmune thyroiditis; E21.3 Hyperparathyroidism, unspecified; E61.1 Iron deficiency; E87.1 Hypo-osmolality and hyponatremia; E78.2 Mixed hyperlipidemia
CPT/HCPCS: 36415; 76536; 80048

== ENCOUNTER → 2024-12-12 08:27 | Outpatient (REF) | payer MEDICARE, OTHER, SELFPAY ==
[2024-12-12 09:37] LABS: Blood Urea Nitrogen 29 mg/dl (7-17); Calcium 9.4 mg/dl (8.4-10.2); Carbon Dioxide 28 mmol/L (22-30); Chloride 97 mmol/L (98-107); Glucose 101 mg/dl (70-99); Potassium 5.1 mmol/L (3.5-5.1); Sodium 132 mmol/L (135-145); eGFR > 60.00
== END ==
LOC: REG 08:27
PROVIDERS: ATTENDING PHYSICIAN Specialist; FAMILY PHYSICIAN Nurse Practitioner Primary Care; REFERRING PHYSICIAN Naturopath
DX: E21.3 Hyperparathyroidism, unspecified (principal); E87.1 Hypo-osmolality and hyponatremia
CPT/HCPCS: 36415; 80048

== ENCOUNTER → 2025-01-16 08:24 | Outpatient (REF) | payer MEDICARE, OTHER, SELFPAY ==
[2025-01-16 10:04] LABS: Blood Urea Nitrogen 25 mg/dl (7-17); Calcium 9.3 mg/dl (8.4-10.2); Carbon Dioxide 29 mmol/L (22-30); Chloride 98 mmol/L (98-107); Glucose 87 mg/dl (70-99); Potassium 4.5 mmol/L (3.5-5.1); Sodium 133 mmol/L (135-145); eGFR > 60.00
== END ==
LOC: REG 08:24
PROVIDERS: ATTENDING PHYSICIAN Nurse Practitioner Primary Care; FAMILY PHYSICIAN Specialist
DX: E87.1 Hypo-osmolality and hyponatremia (principal)
CPT/HCPCS: 36415; 80048

== ENCOUNTER → 2025-01-18 09:38 | Outpatient (REF) | payer MEDICARE, OTHER, SELFPAY | LOC: REG 09:38 | PROVIDERS: ATTENDING PHYSICIAN Internal Medicine Gastroenterology | DX: R63.4 Abnormal weight loss (principal) | CPT/HCPCS: 82653; 82705; 83993; 87045; 87046; 87077; 87324; 87328; 87329; 87427; 87449 ==